=== PATIENT | male | born 1965 | race Two or more races ===

== ENCOUNTER 2021-07-23 09:25 | Emergency (ER) | payer OTHER ==
[~2021-07-23] VITALS: Ht 157.5 cm; Wt 60.3 kg
[2021-07-23] MEDS ORDERED: CLONAZEPAM0.5 MG (09:43)
== END 2021-07-23 21:39 | disposition home or self-care (01) ==
LOC: ER 09:25
DX: T50.991A Poisoning by other drugs, medicaments and biological substances, accidental (unintentional), initial encounter (principal); R41.82 Altered mental status, unspecified; Y92.832 Beach as the place of occurrence of the external cause